=== PATIENT | female | born 1985 | race African-American/Black ===

== ENCOUNTER 2016-09-02 09:48 | Emergency (ER) | payer SELFPAY ==
[~2016-09-02] VITALS: Ht 157.5 cm; Wt 72.6 kg
[2016-09-02] MEDS ORDERED: Dexamethasone 4mg/ml vial IM ONE (10:15)
[2016-09-02] MEDS ORDERED: IBUPROFEN600 MG ORAL (10:17)
[2016-09-02] MEDS ORDERED: AUGMENTIN 875-1 EAC1 ORAL (10:17)
[2016-09-02 10:33] VITALS: BP 118/71
--- NOTE | 2016-09-03 15:43 | Emergency Room Report ---
History of Present Illness General Chief Complaint: Sore Throat Source: Patient Present Illness HPI 22-year-old female presents to ED complaining of sore throat and cough x2 days. , 02/16, nonradiating, sharp. Worse with swallowing. Denies fevers or chills. Denies ear ache. Denies sick contacts or recent travel. No other aggravating relieving factors. Denies any other associated symptoms Allergies: Coded Allergies: No Known Allergies (Unverified , 09/02/16) Patient History Past Medical History: none Past Surgical History: none Pertinent Family History: none Social History: Denies: alcohol use, drug use, smoking Last Menstrual Period: 08/11/2016 Now: No Immunizations: UTD Reviewed Nursing Documentation: PMH: Agreed, PSxH: Agreed Nursing Documentation-PMH Past Medical History: No Stated History Review of Systems All Other Systems: negative except mentioned in HPI Physical Exam Vital Signs Date Time Temp Pulse Resp B/P Pulse Ox O2 Delivery O2 Flow Rate FiO2 09/02/16 09:52 98.8 80 20 125/72 99 Room Air Sp02 EP Interpretation: reviewed, normal General Appearance: no apparent distress, alert, GCS 15, non-toxic Head: normocephalic Eyes: bilateral eye PERRL, bilateral eye normal inspection ENT: hearing grossly normal, no angioedema, normal voice, TMs + canals normal, pharyngeal erythema Neck: full range of motion, supple/symm/no masses Respiratory: chest non-tender, lungs clear, normal breath sounds, speaking full sentences Cardiovascular #1: regular rate, rhythm, no edema Gastrointestinal: normal inspection Rectal: deferred Genitourinary: no CVA tenderness Musculoskeletal: normal inspection Neurologic: alert, oriented x3, responsive, motor strength/tone normal, sensory intact, speech normal Psychiatric: normal inspection Skin: normal inspection Lymphatic: normal inspection Medical Decision Making Diagnostic Impression: Primary Impression: Pharyngitis Qualified Codes: J02.9 - Acute pharyngitis, unspecified ER Course Hospital Course 30-year-old female presents to ED complaining of sore throat, cough Differential diagnoses include: URI, pharyngitis, otitis media Clinical course Patient placed on stretcher. After initial history, physical exam reveals a female in no acute distress. Bilateral TM unremarkable. There is pharyngeal erythema w/o tonsillar exudates. No lymphadenopathy. Clinical findings consistent with pharyngitis. Reassurance given given decadron in ED Diagnosis - pharyngitis Stable and discharged home with prescriptions for augmentin, motrin. Instructed to followup with PMD. return to ED if symptoms recur or worsen Last Vital Signs Date Time Temp Pulse Resp B/P Pulse Ox O2 Delivery O2 Flow Rate FiO2 09/02/16 10:33 76 18 118/71 97 Room Air 09/02/16 09:52 98.8 Status: improved Disposition: HOME, SELF-CARE Condition: Stable Scripts Ibuprofen* (MOTRIN*) 600 Mg Tablet 600 MG ORAL Q8H Y for For Pain, #30 TAB 0 Refills Prov: ILDEFONSO TORRES M.D. 09/02/16 Amoxicillin/Potassium Clav 875-125* (AUGMENTIN 875-125 TABLET*) 1 Each Tablet 1 TAB ORAL TWICE A DAY, #14 TAB Prov: ILDEFONSO TORRES M.D. 09/02/16 Referrals: NOT CHOSEN RY/,REFERRING (PCP) Patient Instructions: Pharyngitis, [id number] ILDEFONSO TORRES M.D. Sep 03, 2016 15:43
== END 2016-09-02 10:30 | disposition home or self-care (01) ==
LOC: EMR 10:16
DX: J02.9 Acute pharyngitis, unspecified (principal)
CPT/HCPCS: 96372; 99284; J1100